=== PATIENT | female | born 1970 | race Caucasian/White ===

== ENCOUNTER 2023-04-02 10:07 | Observation (INO) ==
[~2023-04-02 10:07] MED LIST: ceFAZolin 2 GM in DEXTROSE 5% IN WATER 50 ML IV SCH
[2023-04-02] MEDS ORDERED: ROCURONIUM 10 MG/ML ML IV ONE ×2 (11:46→14:40)
[2023-04-02] MEDS ORDERED: fentaNYL 100 MCG/2 ML VIAL ONE (11:46)
[2023-04-02] MEDS ORDERED: ONDANSETRON 4 MG/2 ML VIAL ONE (11:46)
[2023-04-02] MEDS ORDERED: PROPOFOL 200 MG/20 ML VIAL IV ONE (11:46)
[2023-04-02] MEDS ORDERED: SCOPOLAMINE 1 PATCH PATCH TOPICAL ONE (12:08)
[2023-04-02] MEDS ORDERED: DEXAMETHASONE 10 MG/ML VIAL ONE (13:21)
[2023-04-02] MEDS ORDERED: SUGAMMADEX SODIUM 200 MG/2 ML VIAL IV ONE (14:59)
[2023-04-02] MEDS ORDERED: BUPIVACAINE W/EPI 0.25% 50 ML VIAL IJ ONE (15:52)
[2023-04-02] MEDS ORDERED: ONDANSETRON 4 MG/2 ML VIAL IV PRN ×2 (15:53→17:15)
[2023-04-02] MEDS ORDERED: LACTATED RINGERS 250 ML IV PRN (15:53)
[2023-04-02] MEDS ORDERED: MEPERIDINE 25 MG/ML VIAL IV PRN (15:53)
[2023-04-02] MEDS ORDERED: IPRATROPIUM/ALBUTEROL 3 ML AMPUL.NEB NEB PRN (15:53)
[2023-04-02] MEDS ORDERED: PROMETHAZINE 25 MG/ML VIAL IV PRN (15:53)
[2023-04-02] MEDS ORDERED: HYDROmorphone 0.5 MG/0.5 ML SYRINGE IV PRN ×2 (15:53→16:48)
[2023-04-02] MEDS ORDERED: diphenhydrAMINE 50 MG/ML VIAL IV PRN (15:53)
[2023-04-02] MEDS ORDERED: NALOXONE HCL 0.4 MG/ML VIAL IV PRN (15:53)
[2023-04-02] MEDS ORDERED: METHOCARBAMOL 1,000 MG/10 ML VIAL IV PRN (15:53)
[2023-04-02] MEDS ORDERED: LACTATED RINGERS 1,000 ML IV SCH (16:00)
[2023-04-02] MEDS: fentaNYL 100 MCG/2 ML VIAL IV PRN ×3 (17:05→17:19)
[2023-04-02] MEDS: oxyCODONE IR 5 MG TABLET PO PRN ×2 (17:40→17:46)
[2023-04-02] MEDS ORDERED: ACETAMINOPHEN 1,000 MG/100 ML BAG IV SCH (17:40)
[2023-04-02] MEDS: LACTATED RINGERS 1,000 ML IV SCH (18:24)
[2023-04-02] MEDS ORDERED: ACETAMINOPHEN 650 MG/65 ML BAG IV SCH (22:00)
[2023-04-03] MEDS: oxyCODONE IR 5 MG TABLET PO PRN ×4 (02:34→21:57)
[2023-04-03] MEDS: LACTATED RINGERS 1,000 ML IV SCH ×5 (02:39→21:57)
[2023-04-03 06:19] LABS: Hematocrit 41.7 % (34.1-44.9); Hemoglobin 13.4 g/dL (11.2-15.7); Mean Cell Volume 85.5 fL (80.0-100.0); Mean Corpuscular HGB Conc 32.1 g/dL (31.0-36.0); Mean Platelet Volume 10.4 fL (8.8-12.5); Platelet Count 411 K/mcL (140-440); RBC 4.88 M/mcL (3.59-5.38); Red Cell Distribution Width 12.5 % (11.5-14.5); WBC 7.8 K/mcL (4.5-11.0)
[2023-04-03 06:59] LABS: ALT/SGPT 120 U/L (<40); AST/SGOT 168 U/L (<32); Albumin 3.9 gm/dL (3.2-5.2); Albumin/Globulin Ratio 1.4 (1.0-2.3); Alkaline Phosphatase 80 U/L (39-117); Bilirubin,Total 0.2 mg/dL (0.1-1.0); Blood Urea Nitrogen 5 mg/dL (6-20); Calcium 9.1 mg/dL (8.6-10.4); Carbon Dioxide 26 mmol/L (22-30); Chloride 106 mmol/L (96-108); Globulin 2.8 gm/dL (2.2-3.7); Glomerular Filtration Rate 103; Glucose 105 mg/dL (70-105)
[2023-04-04] MEDS: LACTATED RINGERS 1,000 ML IV SCH ×2 (05:25→10:38)
[2023-04-04 06:23] LABS: Hematocrit 39.8 % (34.1-44.9); Hemoglobin 12.6 g/dL (11.2-15.7); Mean Cell Volume 87.3 fL (80.0-100.0); Mean Corpuscular HGB Conc 31.7 g/dL (31.0-36.0); Mean Platelet Volume 10.5 fL (8.8-12.5); Platelet Count 320 K/mcL (140-440); RBC 4.56 M/mcL (3.59-5.38); Red Cell Distribution Width 12.9 % (11.5-14.5); WBC 7.1 K/mcL (4.5-11.0)
[2023-04-04 06:59] LABS: Blood Urea Nitrogen 4 mg/dL (6-20); Calcium 8.8 mg/dL (8.6-10.4); Carbon Dioxide 29 mmol/L (22-30); Chloride 104 mmol/L (96-108); Glomerular Filtration Rate 103; Glucose 95 mg/dL (70-105)
== END 2023-04-04 15:55 | disposition home or self-care (01) ==
LOC: MEDSUR 10:07 → SUR 10:07 → MEDSUR 18:11
PROVIDERS: ADMIT Surgery Surgical Critical Care; ATTEND Surgery Surgical Critical Care